=== PATIENT | male | born 1985 | race Caucasian/White ===

== ENCOUNTER → 2018-11-10 | Outpatient (CLI) | payer OTHER | LOC: FCPNEURO 20:00 | PROVIDERS: ATTEND Student in an Organized Health Care Education/Training Program | DX: G47.33 Obstructive sleep apnea (adult) (pediatric) (principal) ==

== ENCOUNTER 2019-02-20 23:51 | Emergency (ER) | payer OTHER ==
--- NOTE | 2019-02-21 00:13 | EDPHY ---
H & P Stated Complaint: anxiety, fatigue,, left arm numbness, lightheaded Time Seen by Provider: 02/21/19 00:13 HPI/ROS: HPI CHIEF COMPLAINT: Anxiety, left shoulder discomfort, lightheadedness HISTORY OF PRESENT ILLNESS: This is otherwise healthy 33-year-old male, history of GERD, presents to the emergency room stating he feels anxious. Feels like he may be having anxiety attack however he is unsure. He states around 9:00 a.m. Tonight was lying in bed had some left posterior shoulder discomfort. Describes it as muscles being tight. States he started massaging his neck and felt that his neck was very tense. He denies any chest pain or chest pressure denies shortness of breath or pleuritic pain. He felt somewhat anxious and lightheaded. He states for the past week he has felt "off" states that he has felt somewhat fatigued, and lightheaded. Past Medical History: Obstructive sleep apnea, GERD. Past Surgical History: No recent surgical history Social History: Denies drugs alcohol tobacco. Works as an aircraft engineer. Family History: Noncontributory ROS REVIEW OF SYSTEMS: 10 Systems were reviewed and negative with the exception of the elements mentioned in the history of present illness. Exam Constitutional triage nursing summary reviewed, vital signs reviewed, awake/ alert. Eyes normal conjunctivae and sclera, EOMI, PERRLA. HENT normal inspection, atraumatic, moist mucus membranes, no epistaxis, neck supple/ no meningismus, no raccoon eyes. Respiratory clear to auscultation bilaterally, normal breath sounds, no respiratory distress, no wheezing. Cardiovascular rate normal, regular rhythm, no murmur, no edema, distal pulses normal. Gastrointestinal soft, non-tender, no rebound, no guarding, normal bowel sounds, no distension, no pulsatile mass. Genitourinary no CVA tenderness. Musculoskeletal no midline vertebral tenderness, full range of motion, no calf swelling, no tenderness of extremities, no meningismus, good pulses, neurovascularly intact. Skin pink, warm, & dry, no rash, skin atraumatic. Neurologic awake, alert and oriented x 3, AAOx3, moves all 4 extremities equally, motor intact, sensory intact, CN II-XII intact, normal cerebellar, normal vision, normal speech. Psychiatric normal mood/affect. Heme/Lymph/Immune no lymphadenopathy. Differential Diagnosis: Differential diagnosis includes but is not limited to: ACS, atypical chest pain, pneumothorax, pneumonia, pulmonary embolism, aortic dissection, congestive heart failure, tumor, musculoskeletal pain, esophageal pain, GERD, peptic ulcer disease, pancreatitis Medical Decision Making: Plan for this patient IV establishment IV fluid bolus , IV Ativan for anxiety 1 mg, basic labs, chest x-ray, EKG, troponin and re- evaluate. Re-evaluation: Troponin 0.00 EKG interpretation by me on record in [facility] system. Impression time of EKG 0039: This is sinus rhythm rate of 78, without any signs of acute ischemia no ST elevation no ST depression no T-wave abnormalities unremarkable EKG. D-dimer negative. EKG nonischemic. Chest x-ray: Negative for acute cardiopulmonary disease. 0405: Patient re-evaluated this time he states he feels drastically improved after IV Ativan 1 mg. He has no chest pain or shortness of breath or chest pressure. He has no abdominal pain, no pleuritic pain. He states he feels much better and believes that the Ativan gave him the best improvement. Patient's labs reviewed he has a normal troponin, negative D-dimer, his EKG is unremarkable without any signs of acute ischemia. Chest x-ray shows no acute cardiopulmonary disease. Plan for discharge. I believe his symptoms are anxiety induced. Additionally we discussed return precautions return emergency room if develops chest pain, shortness of breath, fever, not doing well Source: Patient - Personal History Current Tetanus Diphtheria and Acellular Pertussis (TDAP): Yes - Medical/Surgical History Hx Asthma: No Hx Chronic Respiratory Disease: No Hx Diabetes: No Hx Cardiac Disease: No Hx Renal Disease: No Hx Cirrhosis: No Hx Alcoholism: No Hx HIV/AIDS: No Hx Splenectomy or Spleen Trauma: No Other PMH: GERD, sleep apnea - Social History Smoking Status: Never smoked Constitutional: Initial Vital Signs Temperature (C) 36.9 C 02/20/19 23:54 Heart Rate 92 02/20/19 23:54 Respiratory Rate 18 02/20/19 23:54 Blood Pressure 142/93 H 02/20/19 23:54 O2 Sat (%) 96 02/20/19 23:54 O2 Delivery Mode Room Air Allergies/Adverse Reactions: ibuprofen [From Advil] Allergy (Verified 02/20/19 23:53) Sulfa (Sulfonamide Antibiotics) Allergy (Verified 02/20/19 23:53) Medical Decision Making - Data Points Laboratory Results: Laboratory Results 02/21/19 00:30 02/21/19 00:30 02/21/19 02/21/19 02/21/19 00:37 00:30 00:30 WBC RBC Hgb Hct MCV MCH MCHC RDW Plt Count MPV Neut % (Auto) Lymph % (Auto) [place] % (Auto) Eos % (Auto) Baso % (Auto) Nucleat RBC Rel Count Absolute Neuts (auto) Absolute Lymphs (auto) Absolute Monos (auto) Absolute Eos (auto) Absolute Basos (auto) Absolute Nucleated RBC Immature Gran % Immature Gran # PT 13.4 SEC SEC (12.0-15.0) INR 1.06 (0.83-1.16) APTT 32.8 SEC SEC (23.0-38.0) D-Dimer < 0.27 ug/mLFEU ug/mLFEU (0.00-0.50) Sodium 141 mEq/L mEq/L (135-145) Potassium 3.9 mEq/L mEq/L (3.5-5.2) Chloride 103 mEq/L mEq/L (97-110) Carbon Dioxide 25 mEq/l mEq/l (22-31) Anion Gap 13 mEq/L mEq/L (6-14) BUN 17 mg/dL mg/dL (7-23) Creatinine 1.1 mg/dL mg/dL (0.7-1.3) Estimated GFR > 60 Glucose 96 mg/dL mg/dL (70-100) Calcium 9.7 mg/dL mg/dL (8.5-10.4) POC Troponin I 0.00 ng/mL ng/mL (0.00-0.08) NT-Pro-B Natriuret Pep 27 pg/mL pg/mL (0-125) TSH 3.470 uIU/mL uIU/mL (0.465-4.680) 02/21/19 00:30 WBC 9.06 10^3/uL 10^3/uL (3.80-9.50) RBC 5.90 10^6/uL 10^6/uL (4.40-6.38) Hgb 15.4 g/dL g/dL (13.7-17.5) Hct 47.0 % % (40.0-51.0) MCV 79.7 fL L fL (81.5-99.8) MCH 26.1 pg L pg (27.9-34.1) MCHC 32.8 g/dL g/dL (32.4-36.7) RDW 13.8 % % (11.5-15.2) Plt Count 356 10^3/uL 10^3/uL (150-400) MPV 8.9 fL fL (8.7-11.7) Neut % (Auto) 67.6 % % (39.3-74.2) Lymph % (Auto) 22.2 % % (15.0-45.0) [place] % (Auto) 6.7 % % (4.5-13.0) Eos % (Auto) 2.3 % % (0.6-7.6) Baso % (Auto) 0.6 % % (0.3-1.7) Nucleat RBC Rel Count 0.0 % % (0.0-0.2) Absolute Neuts (auto) 6.13 10^3/uL 10^3/uL (1.70-6.50) Absolute Lymphs (auto) 2.01 10^3/uL 10^3/uL (1.00-3.00) Absolute Monos (auto) 0.61 10^3/uL 10^3/uL (0.30-0.80) Absolute Eos (auto) 0.21 10^3/uL 10^3/uL (0.03-0.40) Absolute Basos (auto) 0.05 10^3/uL 10^3/uL (0.02-0.10) Absolute Nucleated RBC 0.00 10^3/uL 10^3/uL (0-0.01) Immature Gran % 0.6 % % (0.0-1.1) Immature Gran # 0.05 10^3/uL 10^3/uL (0.00-0.10) PT INR APTT D-Dimer Sodium Potassium Chloride Carbon Dioxide Anion Gap BUN Creatinine Estimated GFR Glucose Calcium POC Troponin I NT-Pro-B Natriuret Pep TSH Medications Given: Discontinued Medications Sodium Chloride (Ns) 1,000 mls @ 0 mls/hr IV EDNOW ONE; Wide Open PRN Reason: Protocol Stop: 02/21/19 00:24 Last Admin: 02/21/19 00:46 Dose: 1,000 mls Lorazepam (Ativan Injection) 1 mg IVP EDNOW ONE Stop: 02/21/19 00:25 Last Admin: 02/21/19 00:46 Dose: 1 mg Point of Care Test Results: Chemistry 02/21/19 00:37 POC Troponin I 0.00 ng/mL ng/mL (0.00-0.08) Departure - Departure Disposition: Home, Routine, Self-Care Clinical Impression: Anxiety Condition: Good Instructions: Anxiety (ED) Additional Instructions: 1. Rest 2. Stay well-hydrated drink lots of fluids. 3. Return to the emergency room if there is worsening symptoms this includes worsening shortness of breath, chest pain, fever, vomiting, not doing well. Referrals: Adi Cote PA [Primary Care Provider] - As per Instructions
[2019-02-21] MEDS ORDERED: NS 1,000 ML IV ONE (00:23)
[2019-02-21] MEDS ORDERED: LORazepam 2 MG/ML INJ IVP ONE (00:24)
[2019-02-21 00:43] LABS: PLATELET COUNT 356 10^3/uL (150-400)
[2019-02-21 00:53] LABS: INR 1.06 (0.83-1.16); PROTIME(PATIENT) 13.4 SEC (12.0-15.0)
[2019-02-21 04:18] VITALS: BP 108/83
--- NOTE | 2019-02-21 07:23 | CPEKG ---
Test Reason : OPEN Blood Pressure : / mmHG Vent. Rate : 078 BPM Atrial Rate : 080 BPM P-R Int : 163 ms QRS Dur : 099 ms QT Int : 365 ms P-R-T Axes : 038 006 009 degrees QTc Int : 416 ms Sinus rhythm Confirmed by Ugo Arreguin ([id number]) on 02/21/2019 7:22:40 AM Referred By: Ugo Arreguin Confirmed By:Ugo Arreguin
== END 2019-02-21 04:16 | disposition home or self-care (01) ==
DX: F41.9 Anxiety disorder, unspecified (principal); E86.9 Volume depletion, unspecified
CPT/HCPCS: 84484-ER; 96374; J2060